=== PATIENT | female | born 2000 | race Caucasian/White ===

== ENCOUNTER 2020-05-18 19:42 | Emergency (ER) | payer BC, OTHER | END 2020-05-18 20:59 | disposition home or self-care (01) | LOC: JVIRT 19:42 | DX: Z03.818 Encounter for observation for suspected exposure to other biological agents ruled out (principal) | CPT/HCPCS: Q3014-GT ==

== ENCOUNTER 2020-05-19 18:00 | Emergency (ER) | payer BC | END 2020-05-19 18:27 | disposition home or self-care (01) | LOC: JVIRT 18:00 | DX: Z03.818 Encounter for observation for suspected exposure to other biological agents ruled out (principal) | CPT/HCPCS: C9803; Q3014-GT; U0003 ==

== ENCOUNTER 2020-05-28 15:19 | Emergency (ER) | payer BC | END 2020-05-28 17:48 | disposition home or self-care (01) | LOC: JVIRT 15:19 | DX: Z03.818 Encounter for observation for suspected exposure to other biological agents ruled out (principal) | CPT/HCPCS: C9803; G2012-GT; U0003 ==